=== PATIENT | female | born 1950 | race Caucasian/White ===

== ENCOUNTER → 2019-12-20 | Outpatient (CLI) | payer MEDICARE, OTHER ==
[~2019-12-20] MED LIST: ASPIRIN ADULT L81 M1 PO; CALCIUM1 CAP PO; EVISTA60 MG PO; FISH OIL1 IU PO; HYDROCHLOROTHIA25 MG PO; LISINOPRIL20 MG PO; SIMVASTATIN20 MG PO; THERAGRAN1 TA1 PO
== END | disposition home or self-care (01) ==
LOC: COVID19 09:55
PROVIDERS: ATTEND Internal Medicine
DX: Z20.828 Contact with and (suspected) exposure to other viral communicable diseases (principal)